=== PATIENT | male | born 1970 | race Caucasian/White ===

== ENCOUNTER 2022-10-08 20:19 | Emergency (ER) | payer SELFPAY ==
[~2022-10-08] VITALS: Ht 185.5 cm; Wt 122.5 kg
--- NOTE | 2022-10-08 20:22 | ED General ---
General Stated Complaint: HEAT EXHAUSTION History of Present Illness Date Seen by Provider: Oct 08, 2022 Time Seen by Provider: 20:22 Initial Comments 52-year-old male presents with heat exposure. 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 That around noon he started cramping and now is got severe body cramps, abdominal cramps and a headache. Patient reports he works on the heat a lot but today has been significantly worse. It indexes today reached approximately 118-120 while he was out in it. Allergies and Home Medications Allergies Coded Allergies: No Known Drug Allergies (Unverified , 10/08/22) Patient Home Medication List Home Medication List Reviewed: Yes Review of Systems Review of Systems Constitutional: malaise Respiratory: no symptoms reported Gastrointestinal: see HPI Musculoskeletal: see HPI, muscle cramps Psychiatric/Neurological: See HPI, Headache Physical Exam Vital Signs Vital Signs - First Documented 10/08/22 20:19 Temp 36.6 Pulse 115 Resp 26 B/P (MAP) 114/81 (92) Pulse Ox 98 O2 Delivery Room Air Capillary Refill : Height, Weight, BMI Height: '" Weight: lbs. oz. kg; BMI Method: General Appearance: Mild Distress Neck: Non Tender, Supple Respiratory: Lungs Clear, Normal Breath Sounds Cardiovascular: Regular Rate, Rhythm, No Edema Gastrointestinal: Soft, Tenderness (lower abd ) Extremity: Normal Range of Motion Neurologic/Psychiatric: Alert, Oriented x3, No Motor/Sensory Deficits, Normal Mood/Affect Skin: Normal Color, Warm/Dry Progress/Results/Core Measures Suspected Sepsis SIRS Temperature: Pulse: Respiratory Rate: Laboratory Tests 10/08/22 20:20: White Blood Count 21.9H 10/08/22 21:39: White Blood Count 16.4H Blood Pressure / Mean: Laboratory Tests 10/08/22 20:20: Creatinine 2.54H, Platelet Count 253, Total Bilirubin 1.1H 10/08/22 21:39: Creatinine 2.27H, Platelet Count 197 Results/Orders Lab Results Laboratory Tests Test 10/08/22 20:20 10/08/22 21:39 10/08/22 23:24 Range/Units White Blood Count 21.9 H 16.4 H 4.3-11.0 10^3/uL Red Blood Count 6.07 H 5.30 4.30-5.52 10^6/uL Hemoglobin 19.8 H 16.9 13.3-17.7 g/dL Hematocrit 54 48 40-54 % Mean Corpuscular Volume 88 90 80-99 fL Mean Corpuscular Hemoglobin 33 32 25-34 pg Mean Corpuscular Hemoglobin Concent 37 H 35 32-36 g/dL Red Cell Distribution Width 12.2 12.4 10.0-14.5 % Platelet Count 253 197 130-400 10^3/uL Mean Platelet Volume 10.5 10.8 9.0-12.2 fL Immature Granulocyte % (Auto) 3 % Neutrophils (%) (Auto) 64 42-75 % Lymphocytes (%) (Auto) 20 12-44 % Monocytes (%) (Auto) 10 0-12 % Eosinophils (%) (Auto) 3 0-10 % Basophils (%) (Auto) 1 0-10 % Neutrophils # (Auto) 14.0 H 1.8-7.8 10^3/uL Lymphocytes # (Auto) 4.3 H 1.0-4.0 10^3/uL Monocytes # (Auto) 2.2 H 0.0-1.0 10^3/uL Eosinophils # (Auto) 0.7 H 0.0-0.3 10^3/uL Basophils # (Auto) 0.2 H 0.0-0.1 10^3/uL Immature Granulocyte # (Auto) 0.6 H 0.0-0.1 10^3/uL Neutrophils % (Manual) 63 % Lymphocytes % (Manual) 22 % Monocytes % (Manual) 12 % Eosinophils % (Manual) 0 % Basophils % (Manual) 0 % Band Neutrophils 1 % Atypical Lymphocytes 2 % Platelet Estimate NORMAL Percent Immature Platelet Fraction 4.6 4.6 0.0-7.6 % Blood Morphology Comment NORMAL Sodium Level 139 141 135-145 MMOL/L Potassium Level 4.0 3.5 L 3.6-5.0 MMOL/L Chloride Level 100 105 98-107 MMOL/L Carbon Dioxide Level 21 23 21-32 MMOL/L Anion Gap 18 H 13 5-14 MMOL/L Blood Urea Nitrogen 21 H 21 H 7-18 MG/DL Creatinine 2.54 H 2.27 H 0.60-1.30 MG/DL Estimat Glomerular Filtration Rate 29 34 BUN/Creatinine Ratio 8 9 Glucose Level 120 H 109 H 70-105 MG/DL Calcium Level 11.2 H 9.4 8.5-10.1 MG/DL Corrected Calcium 8.5-10.1 MG/DL Magnesium Level 2.1 1.6-2.4 MG/DL Total Bilirubin 1.1 H 0.1-1.0 MG/DL Aspartate Amino Transf (AST/SGOT) 25 5-34 U/L Alanine Aminotransferase (ALT/SGPT) 32 0-55 U/L Alkaline Phosphatase 99 40-136 U/L Troponin I < 0.30 <0.30 NG/ML Total Protein 8.4 H 6.4-8.2 GM/DL Albumin 5.1 H 3.2-4.5 GM/DL Urine Color ZINA H Urine Clarity CLOUDY Urine pH 5.5 5-9 Urine Specific [place] 1.025 H 1.016-1.022 Urine Protein 1+ H NEGATIVE Urine Glucose (UA) NEGATIVE NEGATIVE Urine Ketones TRACE H NEGATIVE Urine Nitrite NEGATIVE NEGATIVE Urine Bilirubin 1+ H NEGATIVE Urine Urobilinogen 0.2 < = 1.0 MG/DL Urine Leukocyte Esterase NEGATIVE NEGATIVE Urine RBC (Auto) NEGATIVE NEGATIVE Urine RBC RARE /HPF Urine WBC 3-5 /HPF Urine Squamous Epithelial Cells NONE /HPF Urine Renal Epithelial Cells 0-2 /HPF Urine Crystals PRESENT H /LPF Urine Calcium Oxalate Crystals MODERATE H /LPF Urine Bacteria NEGATIVE /HPF Urine Casts PRESENT /LPF Urine Hyaline Casts >50 H /LPF Urine Mucus LARGE H /LPF Urine Other RARE EPITH CELL CAST /HPF Urine Culture Indicated NO My Orders Orders - ANGELO,MATILDE L DO Cbc With Automated Diff (10/08/22 20:22) Comprehensive Metabolic Panel (10/08/22 20:22) Creatine Kinase (10/08/22 20:22) Magnesium (10/08/22 20:22) Ua Culture If Indicated (10/08/22 20:22) Troponin I Fs (10/08/22 20:22) Ed Iv/Invasive Line Start (10/08/22 20:24) Ns Iv 1000 Ml (Sodium Chloride 0.9%) (10/08/22 20:30) Ekg Tracing (10/08/22 20:24) Monitor-Rhythm Ecg Trace Only (10/08/22 20:24) Manual Differential (10/08/22 20:20) Ondansetron Injection (Zofran Injectio (10/08/22 20:45) Basic Metabolic Panel (10/08/22 22:07) Cbc No Diff (10/08/22 22:07) Ns Iv 1000 Ml (Sodium Chloride 0.9%) (10/08/22 22:32) Medications Given in ED Current Medications Medications Dose Ordered Sig/Michell Route Start Time Stop Time Status Last Admin Dose Admin Ondansetron HCl 4 mg ONCE ONCE IVP 10/08/22 20:45 10/08/22 20:46 DC 10/08/22 20:50 4 MG Vital Signs/I&O 10/08/22 10/08/22 20:19 23:34 Temp 36.6 36.4 Pulse 115 88 Resp 26 18 B/P (MAP) 114/81 (92) 112/76 Pulse Ox 98 96 O2 Delivery Room Air Room Air Capillary Refill : Progress Note : Progress Note Patient felt significant better following IV fluids. Patient's labs were ordered reviewed by me. His initial labs showed significant hemoconcentration and some mild acute kidney injury. After 2 L patient showing improvement in his labs. He still had not urinated so we gave him an additional liter he also started drinking fluids. He tolerated fluids without difficulty he was able to then urinate without difficulty. Patient does not want to be admitted to the hospital and is feeling much better. We will discharge him home. I did have a long discussion with him regarding heat exposure over the next week with his extreme temperatures and his heat related illness today. He is stable and discharged home ECG Initial ECG Impression Date: Oct 08, 2022 Initial ECG Impression Time: 20:35 Initial ECG Rate: 96 Initial ECG Rhythm: Normal Sinus Initial ECG Intervals: Normal Initial ECG Impression: Normal Departure Impression Primary Impression: Heat exhaustion Qualified Codes: T67.5XXA - Heat exhaustion, unspecified, initial encounter Additional Impression: Dehydration Disposition: 01 HOME, SELF-CARE Condition: Stable Departure-Patient Inst. Patient Instructions: Heat Exhaustion and Heat Stroke (DC), Heat Illness ED Add. Discharge Instructions: Please be careful in the heat over the next week. Be sure you are drinking plenty of fluids. MATILDE ANGELO DO Oct 08, 2022 20:22
[2022-10-08 20:32] LABS: BASOPHILS # (AUTO) 0.2 10^3/uL (0.0-0.1); BASOPHILS % (AUTO) 1 % (0-10); EOSINOPHILS # (AUTO) 0.7 10^3/uL (0.0-0.3); EOSINOPHILS % (AUTO) 3 % (0-10); HEMATOCRIT 54 % (40-54); HEMOGLOBIN 19.8 g/dL (13.3-17.7); LYMPHOCYTES # (AUTO) 4.3 10^3/uL (1.0-4.0); LYMPHOCYTES % (AUTO) 20 % (12-44); MEAN CORPUSCULAR HEMOGLOBIN 33 pg (25-34); MEAN CORPUSCULAR HGB CONC 37 g/dL (32-36); MEAN CORPUSCULAR VOLUME 88 fL (80-99); MEAN PLATELET VOLUME 10.5 fL (9.0-12.2); MONOCYTES # (AUTO) 2.2 10^3/uL (0.0-1.0); MONOCYTES % (AUTO) 10 % (0-12); NEUTROPHILS % (AUTO) 64 % (42-75); PLATELET COUNT 253 10^3/uL (130-400); WHITE BLOOD COUNT 21.9 10^3/uL (4.3-11.0)
[2022-10-08] MEDS: NS IV 1000 ML 1,000 ML IV SCH ×2 (20:32→21:04)
[2022-10-08] MEDS ORDERED: ONDANSETRON INJECTION 4 MG/2 ML (SDV) IVP ONE (20:45)
[2022-10-08 20:50] LABS: ATYPICAL LYMPHOCYTES 2 %; BAND NEUTROPHILS 1 %; BASOPHILS % (MANUAL) 0 %; EOSINOPHILS % (MANUAL) 0 %; LYMPHOCYTES % (MANUAL) 22 %; MONOCYTES % (MANUAL) 12 %; NEUTROPHILS % (MANUAL) 63 %; PLATELET ESTIMATE NORMAL; RBC MORPH NORMAL
[2022-10-08 20:51] LABS: BUN/CREATININE RATIO 8; CALCIUM 11.2 MG/DL (8.5-10.1); CARBON DIOXIDE 21 MMOL/L (21-32); CHLORIDE 100 MMOL/L (98-107); CREATININE SERUM 2.54 MG/DL (0.60-1.30); GFR ESTIMATED 29; GLUCOSE 120 MG/DL (70-105); SODIUM 139 MMOL/L (135-145)
[2022-10-08 20:52] LABS: ALANINE AMINOTRANSFERASE 32 U/L (0-55); ALBUMIN 5.1 GM/DL (3.2-4.5); ALKALINE PHOSPHATASE 99 U/L (40-136); BILIRUBIN,TOTAL 1.1 MG/DL (0.1-1.0); MAGNESIUM 2.1 MG/DL (1.6-2.4); TOTAL PROTEIN 8.4 GM/DL (6.4-8.2)
[2022-10-08 22:17] LABS: HEMOGLOBIN 16.9 g/dL (13.3-17.7); MEAN PLATELET VOLUME 10.8 fL (9.0-12.2); WHITE BLOOD COUNT 16.4 10^3/uL (4.3-11.0)
[2022-10-08 22:27] LABS: CALCIUM 9.4 MG/DL (8.5-10.1); CREATININE SERUM 2.27 MG/DL (0.60-1.30); POTASSIUM 3.5 MMOL/L (3.6-5.0)
[2022-10-08] MEDS ORDERED: NS IV 1000 ML 1,000 ML IV STA (22:32)
[2022-10-08 23:33] LABS: CLARITY,URINE CLOUDY; GLUCOSE, URINE (UA) NEGATIVE (NEGATIVE); KETONES,URINE TRACE (NEGATIVE); LEUKOCYTE ESTERASE ,URINE NEGATIVE (NEGATIVE); NITRITE,URINE NEGATIVE (NEGATIVE); PH,URINE 5.5 (5-9); PROTEIN,URINE 1+ (NEGATIVE)
[2022-10-08 23:34] VITALS: BP 112/76
[2022-10-08 23:50] LABS: BACTERIA,URINE NEGATIVE /HPF; CALCIUM OXALATE CRYSTALS,UR MODERATE /LPF; COLOR,URINE AMBER; RBC,URINE RARE /HPF; RENAL EPITHELIAL CELLS,URINE 0-2 /HPF
[2022-10-08 23:51] LABS: HYALINE CASTS, URINE >50 /LPF
[2022-10-08 23:52] LABS: BILIRUBIN,URINE 1+ (NEGATIVE); URINE OTHER RARE EPITH CELL CAST /HPF
[2022-10-09 14:59] LABS: CREATINE KINASE 231 U/L (30-200)
== END 2022-10-08 23:34 | disposition home or self-care (01) ==
LOC: EDUNIT# 20:19 → ER FS 20:20
DX: T67.5XXA Heat exhaustion, unspecified, initial encounter (principal); E86.0 Dehydration
CPT/HCPCS: 36415; 80048; 80053; 81000; 82550; 83735; 84484; 85007; 85027; 93005; 93041